=== PATIENT | male | born 1945 | race Caucasian/White ===

== ENCOUNTER 2016-10-03 07:05 | Outpatient (CLI) | payer MEDICARE, OTHER ==
[2016-01-10 22:11] VITALS: BP 142/78
[2016-10-03 07:30] LABS: BASOPHILS % 0.7 (0.0-1.5); EOSINOPHILS % 4.4 % (0.0-6.8); LYMPHOCYTES # 1.4 # k/uL (0.6-4.0); MEAN CORPUSCULAR HEMOGLOBIN 33.7 pg (28.0-34.0); MONOCYTES # 0.6 # k/uL (0.0-0.9); MONOCYTES % 6.9 % (0.0-11.0); NEUTROPHILS # 5.4 # k/uL (1.4-7.7)
[2016-10-03 07:31] LABS: APPEARANCE,URINE Clear (CLEAR); COLOR,URINE Yellow (YELLOW); OCCULT BLOOD,URINE Negative (NEGATIVE); UROBILINOGEN URINE 0.2 Eu (0.2-1.0)
[2016-10-03 08:04] LABS: AMORPHOUS SEDIMENT,UR FEW (NEGATIVE)
[2016-10-03 08:11] LABS: eGFR (African) 45; eGFR (Non-African) 37
[2016-10-05 12:21] LABS: PROTEIN mg/dL 48 mg/dL
== END 2016-10-03 07:06 ==
LOC: LAB 07:05
PROVIDERS: ATTEND Internal Medicine Nephrology
DX: I12.9 Hypertensive chronic kidney disease with stage 1 through stage 4 chronic kidney disease, or unspecified chronic kidney disease (principal); N18.9 Chronic kidney disease, unspecified; R80.9 Proteinuria, unspecified
CPT/HCPCS: 36415; 80053; 80061; 81002; 82570; 84156; 84550; 85025

== ENCOUNTER 2016-10-11 14:09 | Outpatient (CLI) | payer MEDICARE, OTHER ==
[2016-01-10 22:11] VITALS: BP 142/78
== END 2016-10-11 14:10 ==
LOC: NEPHRO 14:09
PROVIDERS: ATTEND Internal Medicine Nephrology
DX: I12.9 Hypertensive chronic kidney disease with stage 1 through stage 4 chronic kidney disease, or unspecified chronic kidney disease (principal); N18.3 Chronic kidney disease, stage 3 (moderate); N17.9 Acute kidney failure, unspecified
CPT/HCPCS: G0463

== ENCOUNTER 2016-11-23 10:41 | Outpatient (CLI) | payer MEDICARE, OTHER ==
[2016-01-10 22:11] VITALS: BP 142/78
== END 2016-11-23 10:42 ==
LOC: LAB 10:41
PROVIDERS: ATTEND Family Medicine
DX: Z51.81 Encounter for therapeutic drug level monitoring (principal); Z79.01 Long term (current) use of anticoagulants; I82.409 Acute embolism and thrombosis of unspecified deep veins of unspecified lower extremity
CPT/HCPCS: 36415; 85610

== ENCOUNTER 2016-12-08 10:54 | Outpatient (CLI) | payer MEDICARE, OTHER ==
[2016-01-10 22:11] VITALS: BP 142/78
== END 2016-12-08 10:55 ==
LOC: LAB 10:54
PROVIDERS: ATTEND Family Medicine
DX: Z51.81 Encounter for therapeutic drug level monitoring (principal); Z79.01 Long term (current) use of anticoagulants; I82.409 Acute embolism and thrombosis of unspecified deep veins of unspecified lower extremity
CPT/HCPCS: 36415; 85610

== ENCOUNTER 2017-01-12 08:49 | Outpatient (CLI) | payer MEDICARE, OTHER ==
[2016-01-10 22:11] VITALS: BP 142/78
== END 2017-01-12 08:50 ==
LOC: LAB 08:49
PROVIDERS: ATTEND Family Medicine
DX: Z51.81 Encounter for therapeutic drug level monitoring (principal); Z79.01 Long term (current) use of anticoagulants; I82.409 Acute embolism and thrombosis of unspecified deep veins of unspecified lower extremity
CPT/HCPCS: 36415; 85610

== ENCOUNTER 2017-02-26 08:03 | Outpatient (CLI) | payer MEDICARE, OTHER ==
[2016-01-10 22:11] VITALS: BP 142/78
== END 2017-02-26 08:04 ==
LOC: LAB 08:03
PROVIDERS: ATTEND Family Medicine
DX: I82.409 Acute embolism and thrombosis of unspecified deep veins of unspecified lower extremity (principal)
CPT/HCPCS: 36415; 85610

== ENCOUNTER 2017-03-13 08:44 | Outpatient (CLI) | payer MEDICARE, OTHER ==
[2016-01-10 22:11] VITALS: BP 142/78
== END 2017-03-13 09:03 ==
LOC: LAB 08:44
PROVIDERS: ATTEND Family Medicine
DX: I82.409 Acute embolism and thrombosis of unspecified deep veins of unspecified lower extremity (principal)
CPT/HCPCS: 36415; 85610

== ENCOUNTER 2017-04-09 07:31 | Outpatient (CLI) | payer MEDICARE, OTHER ==
[2016-01-10 22:11] VITALS: BP 142/78
[2017-04-09 08:06] LABS: BASOPHILS % 0.7 (0.0-1.5); EOSINOPHILS % 3.3 % (0.0-6.8); MEAN CORPUSCULAR HEMOGLOBIN 33.8 pg (28.0-34.0); MEAN CORPUSCULAR VOLUME 97.2 fl (80.0-100.0); MONOCYTES % 6.1 % (0.0-11.0); NEUTROPHILS # 6.8 # k/uL (1.4-7.7)
[2017-04-09 08:20] LABS: eGFR (African) 55; eGFR (Non-African) 45
[2017-04-10 05:36] LABS: PROTEIN mg/dL 84 mg/dL
== END 2017-04-09 07:32 ==
LOC: LAB 07:31
PROVIDERS: ATTEND Family Medicine
DX: I82.409 Acute embolism and thrombosis of unspecified deep veins of unspecified lower extremity (principal)
CPT/HCPCS: 36415; 80053; 82570; 83970; 84156; 85025; 85610

== ENCOUNTER 2017-04-17 13:55 | Outpatient (CLI) | payer MEDICARE, OTHER ==
[2016-01-10 22:11] VITALS: BP 142/78
== END 2017-04-17 13:56 ==
LOC: NEPHRO 13:55
PROVIDERS: ATTEND Internal Medicine Nephrology
DX: N18.3 Chronic kidney disease, stage 3 (moderate) (principal); I10 Essential (primary) hypertension; R31.9 Hematuria, unspecified
CPT/HCPCS: G0463

== ENCOUNTER 2017-05-22 08:53 | Outpatient (CLI) | payer MEDICARE, OTHER ==
[2016-01-10 22:11] VITALS: BP 142/78
== END 2017-05-22 08:54 ==
LOC: LAB 08:53
PROVIDERS: ATTEND Family Medicine
DX: I82.409 Acute embolism and thrombosis of unspecified deep veins of unspecified lower extremity (principal)
CPT/HCPCS: 36415; 85610

== ENCOUNTER 2017-06-05 09:32 | Outpatient (CLI) | payer MEDICARE, OTHER ==
[2016-01-10 22:11] VITALS: BP 142/78
== END 2017-06-05 09:33 ==
LOC: LAB 09:32
PROVIDERS: ATTEND Family Medicine
DX: I82.409 Acute embolism and thrombosis of unspecified deep veins of unspecified lower extremity (principal)
CPT/HCPCS: 36415; 85610

== ENCOUNTER 2017-08-01 10:08 | Outpatient (CLI) | payer MEDICARE, OTHER ==
[2016-01-10 22:11] VITALS: BP 142/78
== END 2017-08-01 10:10 ==
LOC: LAB 10:08
PROVIDERS: ATTEND Family Medicine
DX: I82.409 Acute embolism and thrombosis of unspecified deep veins of unspecified lower extremity (principal)
CPT/HCPCS: 36415; 85610

== ENCOUNTER 2017-09-04 10:46 | Outpatient (CLI) | payer MEDICARE, OTHER ==
[2016-01-10 22:11] VITALS: BP 142/78
== END 2017-09-04 12:58 ==
LOC: LAB 10:46
PROVIDERS: ATTEND Physician Assistant
DX: I82.409 Acute embolism and thrombosis of unspecified deep veins of unspecified lower extremity (principal)
CPT/HCPCS: 36415; 85610

== ENCOUNTER 2017-10-02 08:50 | Outpatient (CLI) | payer MEDICARE, OTHER ==
[2016-01-10 22:11] VITALS: BP 142/78
[2017-10-02 09:20] LABS: APPEARANCE,URINE Clear (CLEAR); COLOR,URINE Yellow (YELLOW); OCCULT BLOOD,URINE 1+ (NEGATIVE); UROBILINOGEN URINE 0.2 Eu (0.2-1.0)
[2017-10-02 09:24] LABS: BASOPHILS % 0.8 (0.0-1.5); EOSINOPHILS % 4.3 % (0.0-6.8); MEAN CORPUSCULAR HEMOGLOBIN 34.3 pg (28.0-34.0); MEAN CORPUSCULAR VOLUME 97.4 fl (80.0-100.0); MONOCYTES % 5.3 % (0.0-11.0); NEUTROPHILS # 7.7 # k/uL (1.4-7.7)
[2017-10-02 09:30] LABS: AMORPHOUS SEDIMENT,UR FEW (NEGATIVE)
[2017-10-02 09:42] LABS: eGFR (African) 48; eGFR (Non-African) 39
[2017-10-02 23:01] LABS: PROTEIN mg/dL 308 mg/dL
== END 2017-10-02 08:52 ==
LOC: LAB 08:50
PROVIDERS: ATTEND Family Medicine
DX: I82.409 Acute embolism and thrombosis of unspecified deep veins of unspecified lower extremity (principal); N18.3 Chronic kidney disease, stage 3 (moderate); I10 Essential (primary) hypertension; R31.9 Hematuria, unspecified
CPT/HCPCS: 36415; 80053; 81002; 82570; 84156; 85025; 85610

== ENCOUNTER 2017-10-09 14:03 | Outpatient (CLI) | payer MEDICARE, OTHER ==
[2016-01-10 22:11] VITALS: BP 142/78
== END 2017-10-09 14:04 ==
LOC: NEPHRO 14:03
PROVIDERS: ATTEND Internal Medicine Nephrology
DX: N18.9 Chronic kidney disease, unspecified (principal); N17.9 Acute kidney failure, unspecified; I10 Essential (primary) hypertension
CPT/HCPCS: G0463

== ENCOUNTER 2017-11-06 10:09 | Outpatient (CLI) | payer MEDICARE, OTHER ==
[2016-01-10 22:11] VITALS: BP 142/78
== END 2017-11-06 10:10 ==
LOC: LAB 10:09
PROVIDERS: ATTEND Family Medicine
DX: I82.409 Acute embolism and thrombosis of unspecified deep veins of unspecified lower extremity (principal)
CPT/HCPCS: 36415; 85610

== ENCOUNTER 2017-11-28 09:27 | Outpatient (CLI) | payer MEDICARE, OTHER ==
[2016-01-10 22:11] VITALS: BP 142/78
== END 2017-11-28 10:30 ==
LOC: LAB 09:27
PROVIDERS: ATTEND Family Medicine
DX: I82.409 Acute embolism and thrombosis of unspecified deep veins of unspecified lower extremity (principal)
CPT/HCPCS: 36415; 85610

== ENCOUNTER 2017-12-05 09:24 | Outpatient (CLI) | payer MEDICARE, OTHER ==
[2016-01-10 22:11] VITALS: BP 142/78
== END 2017-12-05 09:30 ==
LOC: LAB 09:24
PROVIDERS: ATTEND Physician Assistant
DX: I82.409 Acute embolism and thrombosis of unspecified deep veins of unspecified lower extremity (principal)
CPT/HCPCS: 36415; 85610

== ENCOUNTER 2017-12-10 14:51 | Outpatient (CLI) | payer MEDICARE, OTHER ==
[2016-01-10 22:11] VITALS: BP 142/78
[2017-12-10 15:11] LABS: BASOPHILS % 0.9 (0.0-1.5); EOSINOPHILS % 4.5 % (0.0-6.8); MEAN CORPUSCULAR HEMOGLOBIN 33.5 pg (28.0-34.0); MEAN CORPUSCULAR VOLUME 96.9 fl (80.0-100.0); MONOCYTES % 7.8 % (0.0-11.0); NEUTROPHILS # 4.9 # k/uL (1.4-7.7)
[2017-12-10 15:38] LABS: eGFR (African) 51; eGFR (Non-African) 42
[2017-12-11 02:21] LABS: PROTEIN mg/dL 318 mg/dL
== END 2017-12-10 14:53 ==
LOC: LAB 14:51
PROVIDERS: ATTEND Internal Medicine Nephrology
DX: I82.409 Acute embolism and thrombosis of unspecified deep veins of unspecified lower extremity (principal); N18.9 Chronic kidney disease, unspecified; N17.9 Acute kidney failure, unspecified; I10 Essential (primary) hypertension; R80.9 Proteinuria, unspecified
CPT/HCPCS: 36415; 80053; 82570; 84156; 85025; 85610

== ENCOUNTER 2017-12-11 14:16 | Outpatient (CLI) | payer MEDICARE, OTHER ==
[2016-01-10 22:11] VITALS: BP 142/78
== END 2017-12-11 14:18 ==
LOC: NEPHRO 14:16
PROVIDERS: ATTEND Internal Medicine Nephrology
DX: R80.9 Proteinuria, unspecified (principal); I10 Essential (primary) hypertension; N18.3 Chronic kidney disease, stage 3 (moderate)
CPT/HCPCS: G0463

== ENCOUNTER 2017-12-19 11:04 | Outpatient (CLI) | payer MEDICARE, OTHER ==
[2016-01-10 22:11] VITALS: BP 142/78
== END 2017-12-19 11:06 ==
LOC: LAB 11:04
PROVIDERS: ATTEND Family Medicine
DX: I82.409 Acute embolism and thrombosis of unspecified deep veins of unspecified lower extremity (principal)
CPT/HCPCS: 36415; 85610

== ENCOUNTER 2018-01-17 08:12 | Outpatient (CLI) | payer MEDICARE, OTHER ==
[2016-01-10 22:11] VITALS: BP 142/78
== END 2018-01-17 08:14 ==
LOC: LAB 08:12
PROVIDERS: ATTEND Family Medicine
DX: I82.409 Acute embolism and thrombosis of unspecified deep veins of unspecified lower extremity (principal)
CPT/HCPCS: 36415; 85610

== ENCOUNTER 2018-01-21 11:47 | Outpatient (CLI) | payer MEDICARE, OTHER ==
[2016-01-10 22:11] VITALS: BP 142/78
[2018-01-21 12:05] LABS: BASOPHILS % 0.6 (0.0-1.5); EOSINOPHILS % 3.9 % (0.0-6.8); MEAN CORPUSCULAR HEMOGLOBIN 33.2 pg (28.0-34.0); MEAN CORPUSCULAR VOLUME 96.9 fl (80.0-100.0); MONOCYTES % 5.3 % (0.0-11.0); NEUTROPHILS # 7.5 # k/uL (1.4-7.7)
[2018-01-21 12:30] LABS: eGFR (African) 42; eGFR (Non-African) 35
[2018-01-22 04:31] LABS: PROTEIN mg/dL 228 mg/dL
== END 2018-01-21 11:50 ==
LOC: LAB 11:47
PROVIDERS: ATTEND Internal Medicine Nephrology
DX: N18.9 Chronic kidney disease, unspecified (principal); N17.9 Acute kidney failure, unspecified; I12.9 Hypertensive chronic kidney disease with stage 1 through stage 4 chronic kidney disease, or unspecified chronic kidney disease; R80.9 Proteinuria, unspecified
CPT/HCPCS: 36415; 80053; 82570; 84156; 85025

== ENCOUNTER 2018-01-22 14:23 | Outpatient (CLI) | payer MEDICARE, OTHER ==
[2016-01-10 22:11] VITALS: BP 142/78
== END 2018-01-22 14:24 ==
LOC: NEPHRO 14:23
PROVIDERS: ATTEND Internal Medicine Nephrology
DX: N05.2 Unspecified nephritic syndrome with diffuse membranous glomerulonephritis (principal); I10 Essential (primary) hypertension; N18.9 Chronic kidney disease, unspecified
CPT/HCPCS: G0463

== ENCOUNTER 2018-02-06 10:11 | Outpatient (CLI) | payer MEDICARE, OTHER ==
[2016-01-10 22:11] VITALS: BP 142/78
--- NOTE | 2018-02-06 16:19 | Diagnostic Imaging Report ---
FLORENCIA RODRIGUEZ [facility] [id number] [facility] [address] [id number] Report Submission Date: February 06, 2018 11:51:06 AM CDT Patient Study Name: SHIREEN MARR Date: February 06, 2018 10:16:52 AM CDT Modality Type: DX Gender: M Description: SPINE : 41 Institution: [facility] Physician: FLORENCIA RODRIGUEZ Examination: Plain film lumbar spine History: L-SPINE, LOW BACK PAIN RADIATING DOWN RT LEG, X6 WEEKS (Hx) Findings: 5 views of the lumbar spine demonstrates osteopenia. Normal height. No anterior compression. Mild listhesis at L4/L5. Oblique views demonstrate facet degenerative changes. Slight curvature to the right. Vascular calcifications. Impression: Osteopenia, degenerative changes, curvature and listhesis. No compression deformity. If patient is experiencing neurologic symptoms, consider obtaining MRI to further evaluate. Electronically signed on February 06, 2018 11:51:06 AM CDT by: Yovani DOBBINS
== END 2018-02-06 10:12 ==
LOC: RAD 10:11
PROVIDERS: ATTEND Physician Assistant
DX: M54.5 Low back pain (principal)
CPT/HCPCS: 72110

== ENCOUNTER 2018-02-20 09:04 | Outpatient (CLI) | payer MEDICARE, OTHER ==
[2016-01-10 22:11] VITALS: BP 142/78
== END 2018-02-20 09:06 ==
LOC: LAB 09:04
PROVIDERS: ATTEND Physician Assistant
DX: I82.409 Acute embolism and thrombosis of unspecified deep veins of unspecified lower extremity (principal)
CPT/HCPCS: 36415; 85610

== ENCOUNTER 2018-03-14 08:45 | Outpatient (CLI) | payer MEDICARE, OTHER ==
[2016-01-10 22:11] VITALS: BP 142/78
== END 2018-03-14 08:55 ==
LOC: LAB 08:45
PROVIDERS: ATTEND Family Medicine
DX: I82.409 Acute embolism and thrombosis of unspecified deep veins of unspecified lower extremity (principal)
CPT/HCPCS: 36415; 85610

== ENCOUNTER 2018-04-12 08:55 | Outpatient (CLI) | payer MEDICARE, OTHER ==
[2016-01-10 22:11] VITALS: BP 142/78
== END 2018-04-12 12:33 ==
LOC: LAB 08:55
PROVIDERS: ATTEND Family Medicine
DX: I82.409 Acute embolism and thrombosis of unspecified deep veins of unspecified lower extremity (principal)
CPT/HCPCS: 36415; 85610

== ENCOUNTER 2018-04-30 11:28 | Outpatient (CLI) | payer MEDICARE, OTHER ==
[2016-01-10 22:11] VITALS: BP 142/78
== END 2018-04-30 11:30 ==
LOC: LAB 11:28
PROVIDERS: ATTEND Physician Assistant
DX: I82.409 Acute embolism and thrombosis of unspecified deep veins of unspecified lower extremity (principal)
CPT/HCPCS: 36415; 85610

== ENCOUNTER 2018-05-14 12:14 | Outpatient (CLI) | payer MEDICARE, OTHER ==
[2016-01-10 22:11] VITALS: BP 142/78
== END 2018-05-14 12:16 ==
LOC: LAB 12:14
PROVIDERS: ATTEND Physician Assistant
DX: I82.409 Acute embolism and thrombosis of unspecified deep veins of unspecified lower extremity (principal)
CPT/HCPCS: 36415; 85610

== ENCOUNTER 2018-05-23 08:09 | Outpatient (CLI) | payer MEDICARE, OTHER ==
[2016-01-10 22:11] VITALS: BP 142/78
[2018-05-23 08:52] LABS: BASOPHILS % 0.6 (0.0-1.5); EOSINOPHILS % 3.6 % (0.0-6.8); MEAN CORPUSCULAR HEMOGLOBIN 33.8 pg (28.0-34.0); MEAN CORPUSCULAR VOLUME 97.3 fl (80.0-100.0); MONOCYTES % 6.5 % (0.0-11.0); NEUTROPHILS # 5.9 # k/uL (1.4-7.7)
[2018-05-23 09:10] LABS: eGFR (Non-African) 33
[2018-05-23 10:36] LABS: APPEARANCE,URINE CLEAR (CLEAR); COLOR,URINE YELLOW (YELLOW); OCCULT BLOOD,URINE NEGATIVE (NEGATIVE); PH URINE 6.5 (5.0 - 8.0); UROBILINOGEN URINE 0.2 Eu (0.2-1.0)
[2018-05-24 05:38] LABS: PROTEIN mg/dL 123 mg/dL
== END 2018-05-23 08:10 ==
LOC: LAB 08:09
PROVIDERS: ATTEND Internal Medicine Nephrology
DX: N05.2 Unspecified nephritic syndrome with diffuse membranous glomerulonephritis (principal); I10 Essential (primary) hypertension; N18.9 Chronic kidney disease, unspecified
CPT/HCPCS: 36415; 80053; 81002; 82570; 83970; 84156; 85025

== ENCOUNTER 2018-06-11 09:28 | Outpatient (CLI) | payer MEDICARE, OTHER ==
[2016-01-10 22:11] VITALS: BP 142/78
== END 2018-06-11 09:30 ==
LOC: LAB 09:28
PROVIDERS: ATTEND Physician Assistant
DX: I82.409 Acute embolism and thrombosis of unspecified deep veins of unspecified lower extremity (principal)
CPT/HCPCS: 36415; 85610

== ENCOUNTER 2018-06-18 14:12 | Outpatient (CLI) | payer MEDICARE, OTHER ==
[2016-01-10 22:11] VITALS: BP 142/78
== END 2018-06-18 14:13 ==
LOC: NEPHRO 14:12
PROVIDERS: ATTEND Internal Medicine Nephrology
DX: N18.9 Chronic kidney disease, unspecified (principal); I10 Essential (primary) hypertension
CPT/HCPCS: G0463

== ENCOUNTER 2018-07-02 09:47 | Outpatient (CLI) | payer MEDICARE, OTHER ==
[2016-01-10 22:11] VITALS: BP 142/78
== END 2018-07-02 09:50 ==
LOC: LAB 09:47
PROVIDERS: ATTEND Physician Assistant
DX: I82.409 Acute embolism and thrombosis of unspecified deep veins of unspecified lower extremity (principal)
CPT/HCPCS: 36415; 85610

== ENCOUNTER 2018-08-13 14:30 | Outpatient (CLI) | payer MEDICARE, OTHER ==
[2016-01-10 22:11] VITALS: BP 142/78
== END 2018-08-13 14:32 ==
LOC: NEPHRO 14:30
PROVIDERS: ATTEND Internal Medicine Nephrology
DX: N05.2 Unspecified nephritic syndrome with diffuse membranous glomerulonephritis (principal); I12.9 Hypertensive chronic kidney disease with stage 1 through stage 4 chronic kidney disease, or unspecified chronic kidney disease; N18.3 Chronic kidney disease, stage 3 (moderate); N17.9 Acute kidney failure, unspecified; N40.1 Benign prostatic hyperplasia with lower urinary tract symptoms
CPT/HCPCS: G0463

== ENCOUNTER 2018-09-18 15:28 | Outpatient (CLI) | payer MEDICARE, OTHER ==
[2016-01-10 22:11] VITALS: BP 142/78
== END 2018-09-18 15:30 ==
LOC: LAB 15:28
PROVIDERS: ATTEND Family Medicine
DX: I82.409 Acute embolism and thrombosis of unspecified deep veins of unspecified lower extremity (principal)
CPT/HCPCS: 36415; 85610

== ENCOUNTER 2018-10-09 13:34 | Outpatient (CLI) | payer MEDICARE, OTHER ==
[2016-01-10 22:11] VITALS: BP 142/78
== END 2018-10-09 13:36 ==
LOC: LAB 13:34
PROVIDERS: ATTEND Family Medicine
DX: I82.409 Acute embolism and thrombosis of unspecified deep veins of unspecified lower extremity (principal)
CPT/HCPCS: 36415; 85610

== ENCOUNTER 2018-10-28 14:48 | Outpatient (CLI) | payer MEDICARE, OTHER ==
[2016-01-10 22:11] VITALS: BP 142/78
== END 2018-10-28 14:59 ==
LOC: LAB 14:48
PROVIDERS: ATTEND Family Medicine
DX: I82.409 Acute embolism and thrombosis of unspecified deep veins of unspecified lower extremity (principal)
CPT/HCPCS: 36415; 85610

== ENCOUNTER 2018-12-09 09:48 | Outpatient (CLI) | payer MEDICARE, OTHER ==
[2016-01-10 22:11] VITALS: BP 142/78
== END 2018-12-09 09:50 ==
LOC: LAB 09:48
PROVIDERS: ATTEND Family Medicine
DX: I82.409 Acute embolism and thrombosis of unspecified deep veins of unspecified lower extremity (principal)
CPT/HCPCS: 36415; 85610

== ENCOUNTER 2018-12-23 09:18 | Outpatient (CLI) | payer MEDICARE, OTHER ==
[2016-01-10 22:11] VITALS: BP 142/78
[2018-12-23 09:47] LABS: BASOPHILS % 1.9 (0.0-1.5); EOSINOPHILS % 3.8 % (0.0-6.8); MEAN CORPUSCULAR HEMOGLOBIN 33.6 pg (28.0-34.0); MONOCYTES % 7.5 % (0.0-11.0); NEUTROPHILS # 7.6 # k/uL (1.4-7.7)
[2018-12-23 10:10] LABS: eGFR (Non-African) 35
[2018-12-23 11:01] LABS: AMORPHOUS SEDIMENT,UR MODERATE (NEGATIVE); APPEARANCE,URINE CLEAR (CLEAR); COLOR,URINE YELLOW (YELLOW); OCCULT BLOOD,URINE TRACE-LYSED (NEGATIVE); UROBILINOGEN URINE 0.2 Eu (0.2-1.0)
== END 2018-12-23 09:20 ==
LOC: LAB 09:18
PROVIDERS: ATTEND Internal Medicine Nephrology
DX: N04.2 Nephrotic syndrome with diffuse membranous glomerulonephritis (principal); R80.9 Proteinuria, unspecified; I10 Essential (primary) hypertension
CPT/HCPCS: 36415; 80053; 80061; 81002; 85025

== ENCOUNTER 2018-12-24 13:56 | Outpatient (CLI) | payer MEDICARE, OTHER ==
[2016-01-10 22:11] VITALS: BP 142/78
== END 2018-12-24 13:58 ==
LOC: NEPHRO 13:56
PROVIDERS: ATTEND Internal Medicine Nephrology
DX: N05.2 Unspecified nephritic syndrome with diffuse membranous glomerulonephritis (principal); I12.9 Hypertensive chronic kidney disease with stage 1 through stage 4 chronic kidney disease, or unspecified chronic kidney disease; N18.3 Chronic kidney disease, stage 3 (moderate); N17.9 Acute kidney failure, unspecified; N25.81 Secondary hyperparathyroidism of renal origin; R80.9 Proteinuria, unspecified
CPT/HCPCS: G0463

== ENCOUNTER 2019-01-14 13:38 | Outpatient (CLI) | payer MEDICARE, OTHER ==
[2016-01-10 22:11] VITALS: BP 142/78
== END 2019-01-14 13:40 ==
LOC: LAB 13:38
PROVIDERS: ATTEND Family Medicine
DX: I82.409 Acute embolism and thrombosis of unspecified deep veins of unspecified lower extremity (principal)
CPT/HCPCS: 36415; 85610

== ENCOUNTER 2019-06-11 08:54 | Outpatient (CLI) | payer MEDICARE, OTHER ==
[2016-01-10 22:11] VITALS: BP 142/78
[2019-06-11 09:25] LABS: BASOPHILS % 0.4 % (0.0-1.5); NEUTROPHILS # 6.7 # k/uL (1.4-7.7)
[2019-06-11 09:26] LABS: APPEARANCE,URINE CLEAR (CLEAR); COLOR,URINE YELLOW (YELLOW); OCCULT BLOOD,URINE 1+ (NEGATIVE); UROBILINOGEN URINE 0.2 Eu (0.2-1.0)
[2019-06-11 09:41] LABS: HDL 31 mg/dL (>40); eGFR (Non-African) 33
== END 2019-06-11 08:56 ==
LOC: LAB 08:54
PROVIDERS: ATTEND Internal Medicine Nephrology
DX: I12.9 Hypertensive chronic kidney disease with stage 1 through stage 4 chronic kidney disease, or unspecified chronic kidney disease (principal); N18.3 Chronic kidney disease, stage 3 (moderate); E87.6 Hypokalemia
CPT/HCPCS: 36415; 80053; 80061; 81002; 83516; 85025

== ENCOUNTER 2019-06-17 13:10 | Outpatient (CLI) | payer MEDICARE, OTHER ==
[2016-01-10 22:11] VITALS: BP 142/78
== END 2019-06-17 13:35 ==
LOC: NEPHRO 13:10
PROVIDERS: ATTEND Internal Medicine Nephrology
DX: I12.9 Hypertensive chronic kidney disease with stage 1 through stage 4 chronic kidney disease, or unspecified chronic kidney disease (principal); N18.3 Chronic kidney disease, stage 3 (moderate)
CPT/HCPCS: 99213; G0463